=== PATIENT | male | born 1990 ===

== ENCOUNTER 2017-09-11 13:49 | Emergency (ER) | payer OTHER ==
[2017-09-11 13:56] VITALS: BMI 28.6
[2017-09-11 13:58] VITALS: RESP 20
[2017-09-11] MEDS: Sodium Chloride 0.9% 1,000 ML IV SCH ×3 (14:45→16:45)
--- NOTE | 2017-09-11 14:47 | C.PDOC ---
History Of Present Illness 27 y/o male presents to ED with c/o subjective fever and intermittent abdominal pain associated with nausea and diarrhea for 3 days. Patient reports pain in the epigastric area and admits to decreased appetite and x10 episodes of diarrhea daily. He states he has tried Advil and Tylenol for pain with no improvement. Patient is able to tolerate PO. He denies blood in stool, sick contacts, change in diet, back pain, dysuria/hematuria or any other complaints at this time. Time Seen by Provider: 09/11/17 14:07 Chief Complaint (Nursing): GI Problem History Per: Patient History/Exam Limitations: no limitations Onset/Duration Of Symptoms: Days Current Symptoms Are (Timing): Still Present Severity: Mild Location Of Pain/Discomfort: Diffuse Radiation Of Pain To:: None Quality Of Discomfort: "Pain" Associated Symptoms: Nausea, Vomiting, Diarrhea. denies: Urinary Symptoms Past Medical History Reviewed: Historical Data, Nursing Documentation, Vital Signs Vital Signs: Last Vital Signs Temp 98.0 F 09/11/17 17:15 Pulse 78 09/11/17 17:15 Resp 20 09/11/17 17:15 BP 124/78 09/11/17 17:15 Pulse Ox 97 09/11/17 17:15 - Medical History PMH: No Chronic Diseases Surgical History: No Surg Hx Family History: States: No Known Family Hx - Social History Hx Alcohol Use: Yes Hx Substance Use: No - Immunization History Hx Tetanus Toxoid Vaccination: No Hx Influenza Vaccination: No Hx Pneumococcal Vaccination: No Review Of Systems Constitutional: Positive for: Fever. Negative for: Chills Gastrointestinal: Positive for: Nausea, Abdominal Pain, Diarrhea. Negative for : Vomiting Genitourinary: Negative for: Dysuria, Hematuria Skin: Negative for: Rash Physical Exam - Physical Exam Appears: Well, Non-toxic, No Acute Distress Skin: Warm, Dry, No Rash Eye(s): bilateral: Normal Inspection Oral Mucosa: Moist Neck: Supple Cardiovascular: Rhythm Regular Respiratory: Normal Breath Sounds, No Rales, No Rhonchi, No Wheezing Gastrointestinal/Abdominal: Bowel Sounds, Soft, Tenderness (Mild epigastric TTP , (-) Gilman's, (-) McBurney's), No Guarding, No Rebound Back: No CVA Tenderness Neurological/Psych: Oriented x3 ED Course And Treatment - Laboratory Results Result Diagrams: 09/11/17 15:09 06 15:09 O2 Sat by Pulse Oximetry: 98 (RA) Pulse Ox Interpretation: Normal Progress Note: Blood work, UA ordered and reviewed. Patient given IV NS bolus. Reevaluation Time: 17:00 Reassessment Condition: Improved (On reassessment, patient is resting comfortably and states he feels better. On exam, abdomen is soft and nontender. Blood work and UA unremarkable. Patient given Rx for bentyl, and was instructed to drink plenty of clear fluids and follow up with PMD/clinic in 1-2 days. He understands he should return to ED if symptoms worsen.) Disposition Counseled Patient/Family Regarding: Studies Performed, Diagnosis, Need For Followup, Rx Given - Disposition Referrals: [facility] at [facility] [Outside] Disposition: HOME/ ROUTINE Disposition Time: 17:00 Condition: STABLE Additional Instructions: FOLLOW WITH YOUR DOCTOR/CLINIC IN 1-2 DAYS RETURN TO ER IF SYMPTOMS WORSEN DRINK PLENTY OF FLUIDS RETURN TO EMERGENCY ROOM IF SYMPTOMS WORSEN SIGA CON CORNELL MDICO / CLNICA EN 1-2 PULIDO VOLVER A ER SI LOS [facility] BEBER MUCHO LQUIDO REGRESE AL MARK DE EMERGENCIA SI [facility] Prescriptions: Dicyclomine [Bentyl] 20 mg PO Q6 PRN #15 tab PRN Reason: ABDOMINAL CRAMPING Instructions: Diarrhea and Traveler's Diarrhea, Adult (DC) Forms: [employer] (Sen[place]alese) Print Language: MOROCC[place] - POA Present On Arrival: None - Clinical Impression Clinical Impression: Diarrhea - Scribe Statement The provider has reviewed the documentation as recorded by the Tiffanie Barrios All medical record entries made by the Syedibsanna were at my direction and personally dictated by me. I have reviewed the chart and agree that the record accurately reflects my personal performance of the history, physical exam, medical decision making, and the department course for this patient. I have also personally directed, reviewed, and agree with the discharge instructions and disposition.
[2017-09-11 15:12] LABS: BASO % 0.2 % (0.0-2.0); EOS % 0.2 % (0.0-4.0); HEMOGLOBIN 15.9 g/dL (12.0-18.0); LYMPH # 0.8 K/uL (1.0-4.3); LYMPH % 11.2 % (20.0-40.0); MEAN CELL VOLUME 82.9 fL (80.0-94.0); MEAN CORPUSCULAR HEMOGLOBIN 28.4 pg (27.0-31.0); MEAN CORPUSCULAR HGB CONC 34.2 g/dL (33.0-37.0); MEAN PLATELET VOLUME 8.3 fL (7.2-11.7); MONO # 0.7 K/uL (0.0-0.8); MONO % 9.2 % (0.0-10.0); NEUT # 5.9 K/uL (1.8-7.0); NEUT % 79.2 % (50.0-75.0); RBC 5.6 Mil/uL (4.40-5.90); RED CELL DISTRIBUTION WIDTH 13.5 % (11.5-14.5); WHITE BLOOD COUNT 7.5 K/uL (4.8-10.8)
[2017-09-11 15:30] LABS: ALB/GLOB RATIO 1.3 (1.0-2.1); ALBUMIN 4.6 g/dL (3.5-5.0); ALT/SGPT 37 U/L (21-72); AST/SGOT 39 U/L (17-59); BLOOD UREA NITROGEN 10 mg/dL (9-20); CALCIUM 9.2 mg/dl (8.6-10.4); GFR AFRICAN-AMERICAN > 60; GFR NON-AFRICAN AMERICAN > 60; LIPASE 220 U/L (23-300)
[2017-09-11 16:47] LABS: URINE BACTERIA RARE (<OCC); URINE BILIRUBIN NEGATIVE (NEGATIVE); URINE BLOOD NEGATIVE (NEGATIVE); URINE CLARITY Clear (Clear); URINE COLOR Yellow (YELLOW); URINE GLUCOSE (UA) NORMAL (Normal); URINE LEUKOCYTE ESTERASE NEG Leu/uL (Negative); URINE PROTEIN NEGATIVE (NEGATIVE); URINE UROBILINOGEN NORMAL mg/dL (0.2-1.0)
[2017-09-11 17:19] VITALS: BP 124/78; PULSE 78; TEMP 98
[2017-09-13 16:02] VITALS: O2SAT 98
== END 2017-09-11 17:15 | disposition home or self-care (01) ==
LOC: C.ER 13:49
DX: R19.7 Diarrhea, unspecified (principal)
CPT/HCPCS: 80053; 81001; 83690; 85025; 99285; J7030